=== PATIENT | male | born 1955 | race Two or more races ===

== ENCOUNTER 2018-08-31 10:43 | Day surgery (SDC) | payer OTHER | END 2018-08-31 17:00 | disposition home or self-care (01) | LOC: AMB-ENDOS 10:43 | DX: D12.2 Benign neoplasm of ascending colon (principal); D12.5 Benign neoplasm of sigmoid colon ==

== ENCOUNTER 2022-02-25 09:27 | Outpatient (CLI) | payer OTHER ==
[2022-02-26] MEDS ORDERED: TRICOR145 MG PO (08:25)
[2022-02-26] MEDS ORDERED: COZAAR100 MG PO (08:25)
[2022-02-26] MEDS ORDERED: ATIVAN2 M1 PO (08:26)
[2022-02-26] MEDS ORDERED: GABAPENTIN400 MG PO (08:26)
[2022-02-26] MEDS ORDERED: CIALIS2.5 MG PO (08:27)
[2022-02-26] MEDS ORDERED: DAFLONEX-XL 11300 MG PO (08:28)
== END 2022-02-25 09:42 | disposition home or self-care (01) ==
LOC: LAB 09:27
PROVIDERS: ATTEND Surgery
DX: D12.5 Benign neoplasm of sigmoid colon (principal); R19.5 Other fecal abnormalities

== ENCOUNTER 2022-02-26 08:49 | Inpatient (IN) | payer OTHER ==
[~2022-02-26] VITALS: Ht 160 cm; Wt 77.1 kg
[~2022-02-26 08:49] MED LIST: ATIVAN2 M1 PO; CIALIS2.5 MG PO; COZAAR100 MG PO; DAFLONEX-XL 11300 MG PO; GABAPENTIN400 MG PO; TRICOR145 MG PO
[2022-02-27] MEDS ORDERED: CLONAZEPAM1 MG (16:14)
[2022-02-27] MEDS ORDERED: TRAZODONE HCL100 MG (16:14)
[2022-02-27] MEDS ORDERED: ZOLPIDEM TARTRA10 MG (16:14)
[2022-02-27] MEDS ORDERED: PANTOPRAZOLE SO40 MG (16:15)
[2022-03-03] MEDS ORDERED: PERCOCET 5-3251 EACH PO (11:08)
[2022-03-03] MEDS ORDERED: MUPIROCIN22 GM TOP (11:10)
== END 2022-03-03 12:57 | disposition home or self-care (01) | DRG 331 ==
LOC: SURH 02-27 07:39 → O/R 02-27 11:37 → SURG 02-27 20:39
PROVIDERS: ADMIT Surgery; ATTEND Surgery
PROC: 0DBP4ZZ Excision of Rectum, Percutaneous Endoscopic Approach (ICD-10-PCS; 2022-02-27)
PROC: 07BC4ZZ Excision of Pelvis Lymphatic, Percutaneous Endoscopic Approach (ICD-10-PCS; 2022-02-27)
PROC: 0DBK8ZX Excision of Ascending Colon, Via Natural or Artificial Opening Endoscopic, Diagnostic (ICD-10-PCS; 2022-02-27)
PROC: 0DTN4ZZ Resection of Sigmoid Colon, Percutaneous Endoscopic Approach (ICD-10-PCS; principal; 2022-02-27 09:00)
DX: D12.5 Benign neoplasm of sigmoid colon (principal); R19.5 Other fecal abnormalities; D12.2 Benign neoplasm of ascending colon; K52.89 Other specified noninfective gastroenteritis and colitis; I11.9 Hypertensive heart disease without heart failure; F17.200 Nicotine dependence, unspecified, uncomplicated; N18.2 Chronic kidney disease, stage 2 (mild); Z20.822 Contact with and (suspected) exposure to COVID-19